=== PATIENT | male | born 1985 | race Caucasian/White ===

== ENCOUNTER → 2020-01-20 10:28 | Outpatient (CLI) | payer OTHER ==
[2014-03-02 05:41] VITALS: BMI 28.6
[~2020-01-20 10:28] MED LIST: CYCLOBENZAPRINE10 MG PO; LISINOPRIL5 MG PO; NORCO 10/325 TA1 TA1 PO
--- NOTE | 2020-01-20 11:39 | NUR ---
TIME OUT FOR RT SHOULDER ARTHRO AT [id number]
== END | disposition home or self-care (01) ==
LOC: D.RAD 10:28 → D.MRI 11:30
PROVIDERS: ATTEND Orthopaedic Surgery
DX: S43.431A Superior glenoid labrum lesion of right shoulder, initial encounter (principal); M25.511 Pain in right shoulder; X58.XXXA Exposure to other specified factors, initial encounter